=== PATIENT | male | born 1965 | race Caucasian/White ===

== ENCOUNTER → 2016-11-18 | Outpatient (REF) | LOC: RAD 14:42 | DX: R06.2 Wheezing (principal); D73.4 Cyst of spleen ==

== ENCOUNTER → 2016-11-23 | Day surgery (SDC) | payer SELFPAY | LOC: MSO 11:37 | DX: D12.5 Benign neoplasm of sigmoid colon (principal); K92.1 Melena; K64.1 Second degree hemorrhoids; R19.7 Diarrhea, unspecified; J44.9 Chronic obstructive pulmonary disease, unspecified; F17.210 Nicotine dependence, cigarettes, uncomplicated; J45.909 Unspecified asthma, uncomplicated | CPT/HCPCS: 00810; J3010; J7120 ==